=== PATIENT | female | born 1945 | race Caucasian/White ===

== ENCOUNTER → 2018-06-22 | Outpatient (CLI) | payer MEDICARE, BC ==
[~2018-06-22] MED LIST: ASPIRIN 32325 MG/TAB PO; MULTIPLE VITAMI1 CAP PO; NORCO 325 MG-7.1 TAB PO; ROXICODONE 55 MG/TAB PO; VITAMIN C PURE500 MG PO
== END ==
LOC: MC.RAD 06-08 08:30
DX: R92.0 Mammographic microcalcification found on diagnostic imaging of breast (principal)